=== PATIENT | female | born 1975 | race Caucasian/White ===

== ENCOUNTER → 2022-12-22 | Outpatient (CLI) | payer MEDICAID ==
[~2022-12-22] MED LIST: FERROUS SULFATE65 MG PO; MOTRIN 600600 MG/TAB PO; NEURONTIN300 MG/CAP PO; PERCOCET 325 MG1 TA2 PO; PRENATAL VITAMI1 TA5 PO; PRENATAL1 TA1 PO; ULTRAM 50MG TAB50 MG PO; ZANAFLEX 4MG TAB4 MG PO
== END ==
LOC: COL.PUL 09:55
DX: R06.02 Shortness of breath (principal)
CPT/HCPCS: J7674